=== PATIENT | female | born 1975 | race Caucasian/White ===

== ENCOUNTER 2023-07-24 09:07 | Emergency (ER) | payer SELFPAY ==
[~2023-07-24] VITALS: Ht 170.2 cm; Wt 77.3 kg
[2023-07-24] VITALS (8 sets, daily range): BP systolic 112–136; BP diastolic 48–79; PULSE 64–69; TEMP 98.1–98.5
[2023-07-24] MEDS ORDERED: Morphine 4 MG/ML VIAL IV ONE (09:30)
[2023-07-24] MEDS ORDERED: Ondansetron 4 MG/2 ML VIAL IV ONE (09:30)
[2023-07-24] MEDS ORDERED: NS 1,000 ML IV ONE (09:30)
[2023-07-24 09:47] LABS: BASO # 0.1 K/mm3 (0.0-0.2); BASO % 0.9 % (0.0-2.0); EOS # 0.1 K/mm3 (0.0-0.7); EOS % 2.1 % (0.0-4.0); GRAN % 61.5 % (42.2-75.2); LYMPH # 1.8 K/mm3 (1.2-3.4); LYMPH % 26.8 % (20.0-51.0); MEAN CELL VOLUME 68 fl (80.0-100.0); MEAN CORPUSCULAR HGB CONC 27 g/dl (33.0-37.0); MEAN PLATELET VOLUME 10.3 fl (7.4-10.4); MONO # 0.6 K/mm3 (0.1-0.6); MONO % 8.4 % (1.7-9.3); PLATELET COUNT 340 K/mm3 (130-400); RED BLOOD COUNT 3.87 M/mm3 (4.10-5.30); REDCELL DISTRIBUTION WIDTH-CV 18.7 % (11.5-14.5)
[2023-07-24 10:13] LABS: HEMATOCRIT 26.2 % (37.0-47.0); HEMOGLOBIN 7.1 g/dl (12.5-16.0); MEAN CORPUSCULAR HEMOGLOBIN 18 pg (27-31)
[2023-07-24 10:21] LABS: ALBUMIN 3.3 g/dL (3.5-5.0); BILIRUBIN,TOTAL 0.4 mg/dL (0.2-1.2); C-REACTIVE PROTEIN 0.92 mg/dL (0.00-0.50); CALCIUM 8.8 mg/dL (8.4-10.2); CREATININE, serum 0.64 mg/dL (0.57-1.11); POTASSIUM 3.4 mEq/L (3.5-4.5); TOTAL PROTEIN 7.2 g/dl (6.2-8.1)
[2023-07-24] MEDS ORDERED: Tranexamic Acid 1,000 MG in NS 100 ML IV ONE (13:00)
== END 2023-07-24 18:03 | disposition home or self-care (01) ==
LOC: COL.ER 09:07 → EDBD 09:08 → COL.ER 09:08
PROVIDERS: Emergency Medicine
DX: D25.9 Leiomyoma of uterus, unspecified (principal); D64.9 Anemia, unspecified
CPT/HCPCS: J2270; J2405; J7030; P9016

== ENCOUNTER 2023-08-14 19:01 | Inpatient (IN) | payer SELFPAY ==
[~2023-08-14] VITALS: Ht 170.2 cm; Wt 80.6 kg
--- NOTE | 2023-08-14 18:35 | NUR ---
Patient up to floor from Express unit. Patient prydeinig speaking. Using the compressor battery pellets, pt oriented to room and all questions answered via the compressor battery pellets by this RN and the Express RN. Pt verbalized understanding of the plan for surgery and need to be NPO at midnight tonight. Refuses offer for food at this time. 2nd unit of blood infusing at this time per order, IV C/D/I. Bed in lowest position with call light within reach.
[~2023-08-14 19:01] MED LIST: GOODY'S EX-STR1 EAC1 PO; TYLENOL 500MG500 MG PO
--- NOTE | 2023-08-14 19:30 | NUR ---
BECAUSE THE PATIENT IS SAMI SPEAKING ONLY AND KNOWS VERY LITTLE [place] AN DISTRIBUTION LINEMAN WAS USED FOR THE ENTIRE ADMISSION PROCESS WELL THE SIGNING OF THE CONSENT FOR SURGERY TOMORROW MORNING. THE PATIENT VERBALIZED UNDERSTANDING AND WAS COMFORTABLE SIGNING THE CONSENT FORM.
[2023-08-14 20:00] VITALS: BP 143/73; PULSE 74; TEMP 98.3
--- NOTE | 2023-08-14 20:00 | NUR ---
THE PATIENT ARRIVED FROM THE EXPRESS UNIT AT THE END OF . BEDSIDE REPORT WAS RECEIVED FROM KAMI Pugh RN AT 7 PM. THE PATIENT HAD A SECOND UNIT OF BLOOD TRANSFUSING UPON ARRIVAL AT 250 ML/HR. THE RATE WAS LOWERED TO 150 ML/HR. THE PATIENT DID NOT APPEAR TO HAVE AND S/S OF A TRANSFUSION REACTION. VITAL SIGNS STABLE. SINCE THE UNIT OF BLOOD WAS STARTED IN THE OUTPATIENT VISIT RECORD THERE WAS NO PLACE IN THE NEW INPATIENT RECORD TO DOCUMENT THE BLOOD TRANSFUSION. NOTES ARE BEING UTILIZED FOR THIS PURPOSE.
[2023-08-14 20:15] VITALS: BP 141/75; PULSE 70; TEMP 98.4
--- NOTE | 2023-08-14 20:15 | NUR ---
THE BLOOD TRANSFUSION COMPLETED AT 8:15 PM. SEE THE VITAL SIGNS RECORD FOR DETAILS. VITALS WERE TAKEN AT 7 PM, 8 PM AND 8:15 PM AT THE CONCLUSION OF THE TRANSFUSION. NO S/S OF A TRANSFUSION REACTION WERE NOTED. VITAL SIGNS STABLE. THE PATIENT DENIED ANY PAIN OR DISCOMFORT. 335 ML INFUSED.
--- NOTE | 2023-08-14 20:26 | NUR ---
THE PATIENT ARRIVED DURING SHIFT CHANGE FROM THE OUTPATIENT [facility] UNIT. THE PATIENT WAS ALERT AND ORIENTED AND GUINEAN SPEAKING ONLY. THE ORCHESTRA TEACHER WAS USED FOR HER ADMISSION ASSESSMENT AND CONSENT FOR SURGERY. THE PATIENT HAD A UNIT OF BLOOD INFUSING UPON ARRIVAL. THE PTS VITAL SIGNS WERE STABLE. THE PATIENT WAS ORIENTED TO THE ROOM AND BED CONTROLS USING THE ORCHESTRA TEACHER. CALL LIGHT WITHIN REACH.
[2023-08-14 21:00] VITALS: BP_SYST 132
[2023-08-14 21:15] VITALS: BP 144/72; PULSE 69; TEMP 98.5
--- NOTE | 2023-08-14 21:15 | NUR ---
VITAL SIGNS TAKEN 1 HOUR AFTER THE BLOOD TRANSFUSION COMPLETION. THIS WOULD HAVE BEEN 9:15 PM. SEE THE VITAL SIGNS RECORD FOR DETAILS. NO S/S OF A TRANSFUSION REACTION NOTED. VITAL SIGNS WITHIN NORMAL LIMITS.
[2023-08-14] MEDS ORDERED: LR 1,000 ML IV SCH (21:45)
[2023-08-14 23:40] VITALS: BP 132/65; PULSE 67; TEMP 97.9
[2023-08-15] VITALS (11 sets, daily range): BP systolic 126–163; BP diastolic 57–72; PULSE 60–81; TEMP 97.3–98.5
[2023-08-15] MEDS ORDERED: fentaNYL 50 MCG/ML 5 ML VIAL ONE (07:05)
[2023-08-15] MEDS ORDERED: Rocuronium 50 MG/5 ML Multi-Dose VIAL ONE (07:05)
[2023-08-15] MEDS ORDERED: Lidocaine PF 2% (20 MG/ML) 5 ML VIAL ONE (07:05)
--- NOTE | 2023-08-15 07:05 | NUR ---
Pt resting in bed, interpretation services used. Pt with no pain, steady gait to bathroom, fluids runing, pt remains NPO. Consents on the chart and fluids to gravity tubing. Pt taken off of the floor to surgery at this time.
[2023-08-15] MEDS ORDERED: ePHEDrine 50 MG/ML VIAL ONE (07:35)
[2023-08-15] MEDS ORDERED: dexAMETHasone 10 MG/ML VIAL ONE (07:49)
[2023-08-15] MEDS ORDERED: droPERidol 2.5 MG/ML 2 ML VIAL IV PRN (08:15)
[2023-08-15] MEDS ORDERED: Ondansetron 4 MG/2 ML VIAL IV PRN ×3 (08:15→09:00)
[2023-08-15] MEDS ORDERED: HYDROmorphone 1 MG/1 ML SYRINGE [PACU/SDC ONLY] IV PRN (08:15)
[2023-08-15] MEDS ORDERED: fentaNYL 50 MCG/ML 1 ML SYRINGE/VIAL [PACU/SDC ONLY] IV PRN (08:15)
[2023-08-15] MEDS ORDERED: Ondansetron 4 MG/2 ML VIAL ONE (08:28)
[2023-08-15] MEDS ORDERED: Ketorolac 30 MG/ML VIAL ONE (08:28)
[2023-08-15] MEDS ORDERED: fentaNYL 50 MCG/ML 2 ML VIAL ONE (08:28)
[2023-08-15] MEDS ORDERED: Naloxone 0.4 MG/ML VIAL IV PRN (09:00)
[2023-08-15] MEDS ORDERED: Docusate Sodium 100 MG CAP PO SCH (09:00)
[2023-08-15] MEDS ORDERED: oxyCODONE/Acetaminophen 5-325 MG TAB PO PRN (09:00)
[2023-08-15] MEDS ORDERED: LR 1,000 ML IV SCH (09:00)
[2023-08-15] MEDS ORDERED: Morphine 4 MG/ML VIAL IV PRN (09:00)
--- NOTE | 2023-08-15 10:54 | NUR ---
Pt up to floor at this time, A/O x4, dressing to abdomen incision CDI, 2l NC in place per ordrs, lewis to dependent drainage. Tolerating deit well, no needs at this time, will continue to monitor.
[2023-08-15] MEDS ORDERED: Ibuprofen 800 MG TAB PO SCH (14:54)
--- NOTE | 2023-08-15 16:56 | NUR ---
tar pot worker met with patient and family member to discuss discharge planning. Patient is azeri speaking, so clinical social work aide utilized the [employer] painter helper services. Salesperson Cors[employer] ID [id number]. Patient lives in [place]. Patient does not have a primary care physician and does not have insurance. SW explained what [facility] is and that she would provide information on this to patient. Patient understood. Patient's niece is Isis, Hema# [phone]. Patient stated this would be her next of kin. Patient reports she does not have a DPOA-HC. No DME, reports to be independent with ADLS. Patient reports she has not had to fill any prescriptions yet so she is uncertain if cost will be a concern. Patient reports any prescriptions can be sent to [facility]. Patient reports to use the [employer] bus for transportation. Patient would like to return home at time of discharge. Discharge plan: Home
[2023-08-16 00:26] VITALS: BP 116/48; PULSE 78; TEMP 99.3
[2023-08-16 03:33] VITALS: BP 115/62; PULSE 71; TEMP 98.3
--- NOTE | 2023-08-16 05:25 | NUR ---
RAMOS CATHETER REMOVED AT 0515. THE PATIENT TOLERATED THE PROCEDURE WELL. THE BALLOON WAS INTACT. [facility]OR CARE PROVIDED.
[2023-08-16] MEDS ORDERED: MOTRIN 800800 MG/TAB PO (06:50)
[2023-08-16] MEDS ORDERED: PERCOCET 325 MG1 TA2 PO (06:50)
[2023-08-16 07:47] VITALS: BP 103/51; PULSE 70; TEMP 98.1
--- NOTE | 2023-08-16 08:45 | NUR ---
Pt resting in bed with family at bedside rating pain 4/10 in lower abdomen. Pain medication provided per emar. Pt more alert today, steady gait to chair, dressing to incision clean and dry, pt toelrating water intake and breakfast well. Voice intrepretation used. Call light within reach, will continue to monitor.
[2023-08-16 11:49] VITALS: BP 102/57; PULSE 68; TEMP 98.2
--- NOTE | 2023-08-16 14:09 | NUR ---
Discharge instructions provided to pt and family using Voice pipe bowl paint trimmer. Discussed text message service for follow up appointment with [facility], signs of infection, lifting restrictions, and new medications. No questions at this time. IV removed. Pt waiting on ride to pick her up at 1430.
--- NOTE | 2023-08-16 14:44 | NUR ---
Pt ecorted out of building via wheelchair at this time.
== END 2023-08-16 14:45 | disposition home or self-care (01) | DRG 743 ==
LOC: SURG 19:01
PROVIDERS: ADMIT Obstetrics & Gynecology
PROC: 0UT90ZZ Resection of Uterus, Open Approach (ICD-10-PCS; principal; 2023-08-14)
PROC: 0UT70ZZ Resection of Bilateral Fallopian Tubes, Open Approach (ICD-10-PCS; 2023-08-14)
DX: D25.9 Leiomyoma of uterus, unspecified (principal); D50.0 Iron deficiency anemia secondary to blood loss (chronic)
CPT/HCPCS: A4314; J0690; J1100; J1170; J1885; J2270; J2405; J2704; J3010; J7120